=== PATIENT | female | born 1950 | race Caucasian/White ===

== ENCOUNTER 2023-05-13 09:19 | Day surgery (SDC) | payer BC ==
[2023-05-07 17:44] VITALS: BMI 34.7
[2023-05-11] MEDS: SENNOSIDES/DOCUSATE COMBO (SENNA PLUS) TABLET (UD) PO SCH (22:22)
[2023-05-12] MEDS: ACETAMINOPHEN 500 MG TABLET (FP) PO SCH ×2 (17:15→23:22)
[2023-05-12] MEDS: CEFAZOLIN SODIUM 2 GM in DEXTROSE 5%-WATER 100 ML IVPB SCH (17:16)
[2023-05-12] MEDS: ASPIRIN 81 MG CHEWABLE TABLETS PO SCH (21:04)
[2023-05-12] MEDS: GABAPENTIN 300 MG CAPSULE PO SCH (21:04)
[2023-05-12] MEDS: ASCORBIC ACID 500 MG TABLET (FP) PO SCH (21:05)
[2023-05-12] MEDS: oxyCODONE HCL 5 MG TABLET PO PRN (21:05)
[2023-05-13 02:08] VITALS: RESP 18
[2023-05-13] MEDS: CEFAZOLIN SODIUM 2 GM in DEXTROSE 5%-WATER 100 ML IVPB SCH (02:46)
[2023-05-13] MEDS: oxyCODONE HCL 5 MG TABLET PO PRN ×2 (05:35→09:26)
[2023-05-13] MEDS: ACETAMINOPHEN 500 MG TABLET (FP) PO SCH ×2 (05:35→16:32)
[2023-05-13 07:40] LABS: HEMATOCRIT 41.7 % (32.4-45.2); HEMOGLOBIN 13.8 G/dL (10.7-15.3); MCH 28.7 pg (25.7-33.7); MCHC 33.1 g/dl (32.0-36.0); MEAN CELL VOLUME 86.5 fl (80-96); MEAN PLT VOLUME 8.7 fl (7.5-11.1); PLATELET COUNT 270.2 10^3/uL (134-434); RBC 4.82 10^6/uL (3.60-5.2); RDW 14.4 % (11.6-15.6); WHITE BLOOD COUNT 15.4 10^3/uL (4.0-10.8)
[2023-05-13 09:04] LABS: POTASSIUM 3.4 mmol/L (3.5-5.1)
[2023-05-13 09:11] LABS: CALCIUM 9.6 mg/dL (8.5-10.1)
[2023-05-13 09:12] LABS: BLOOD UREA NITROGEN 14.8 mg/dL (7-18)
[2023-05-13 09:15] LABS: CREATININE 0.8 mg/dL (0.55-1.3)
[~2023-05-13 09:19] MED LIST: ACETAMINOPHEN 1000 MG/100 ML BAG IVPB ONE; ACETAMINOPHEN INJECTION 100 ML IVPB ONE; ATORVASTATIN CA 20 MG TABLET (FP) PO SCH; BUPIVACAINE HCL/PF 0.5% (5MG/ML) 10 ML VIAL ONE; BUPIVACAINE LIPOSOME/PF (EXPAREL) 266 MG/20 ML VIAL ONE; BUPIVICAINE 0.25%/MORPH PF/KETOROLAC - 51ML DISP.SYRINGE IA ONE; CEFAZOLIN 2 GM in DEXTROSE 5%-WATER - 50 ML IVPB ONE; DEXAMETHASONE SOD PHOSPHATE 4 MG/1 ML VIAL ONE; LACTATED RINGERS SOLUTION 1,000 ML IV SCH; LIDOCAINE HCL/PF 2% SDV 5ML VIAL ONE; LOSARTAN POTASSIUM 50 MG TABLET PO SCH; MAG HYDROX/AL HYDROX/SIMETH 30 ML UNIT-DOSE CUP PO PRN; MIDAZOLAM HCL 2 MG/2 ML SINGLE DOSE VIAL ONE; ONDANSETRON 4 MG/2 ML VIAL IVPUSH PRN; ONDANSETRON 4 MG/2 ML VIAL ONE; PROPOFOL 80 ML ONE; SODIUM CHLORIDE 0.9% P/F 10 ML VIAL IJ ONE; TRANEXAMIC ACID 1000 MG/10 ML VIAL IVPUSH ONE; TRANEXAMIC ACID 1000 MG/10 ML VIAL ONE; VANCOMYCIN 1,000 MG VIAL (RESTRICTED TO ID ONLY) ONE; ceFAZolin SODIUM 1 GM VIAL ONE; oxyCODONE HCL 5 MG TABLET PO PRN
[2023-05-13] MEDS: ASPIRIN 81 MG CHEWABLE TABLETS PO SCH (09:20)
[2023-05-13] MEDS: ASCORBIC ACID 500 MG TABLET (FP) PO SCH (09:21)
[2023-05-13] MEDS: GABAPENTIN 300 MG CAPSULE PO SCH (09:21)
[2023-05-13] MEDS: SENNOSIDES/DOCUSATE COMBO (SENNA PLUS) TABLET (UD) PO SCH (09:25)
[2023-05-13] MEDS ORDERED: CHOLECALCIFEROL (VIT D3) 1,000 UNIT (25 MCG) TABLET PO SCH (10:00)
[2023-05-13] MEDS ORDERED: PANTOPRAZOLE 40 MG TABLET PO SCH (10:00)
[2023-05-13] MEDS ORDERED: MAGNESIUM OXIDE 400 MG TABLET (FP) PO SCH (10:00)
[2023-05-13] MEDS ORDERED: HYDROCHLOROTHIAZIDE 25 MG TABLET (FP) PO SCH (10:00)
[2023-05-13] MEDS ORDERED: MULTIVITAMINS (DAILY MVI) TABLET (FP) PO SCH (10:00)
[2023-05-13] MEDS ORDERED: CELECOXIB 200 MG CAPSULE PO SCH (10:00)
[2023-05-13 16:22] VITALS: BP 158/69; PULSE 91; TEMP 98
== END 2023-05-13 17:34 | disposition home or self-care (01) | DRG 470 ==
LOC: FASUSAT 09:19 → FM/S 09:19 → UNDODISIN 17:34 → FASUSAT 17:34
PROVIDERS: ATTEND Internal Medicine
PROC: 8E0Y0CZ Robotic Assisted Procedure of Lower Extremity, Open Approach (ICD-10-PCS; 2023-05-12)
PROC: 0SRC0JZ Replacement of Right Knee Joint with Synthetic Substitute, Open Approach (ICD-10-PCS; principal; 2023-05-12 08:56)
DX: M17.11 Unilateral primary osteoarthritis, right knee (principal); M25.561 Pain in right knee
CPT/HCPCS: 36415; 73560-TC-RT-FY; 80048; 85027; 94760; 97010-GP; 97116-GP; 97162-GP; C1776